=== PATIENT | female | born 1995 | race African-American/Black ===

== ENCOUNTER 2017-01-08 18:37 | Emergency (ER) | payer MEDICAID, OTHER ==
[~2017-01-08] VITALS: Ht 185.4 cm; Wt 83.9 kg
[~2017-01-08 18:37] MED LIST: COLACE100 MG ORAL; NKM
[2017-01-08] MEDS ORDERED: Dexamethasone 4mg/ml vial IM ONE (19:00)
[2017-01-08] MEDS ORDERED: DiphenhydrAMINE 50mg/ml Inj IM ONE (20:15)
[2017-01-08 21:14] LABS: BASOPHILS % (AUTO) 1.9 % (0.0-2.0); EOSINOPHILS % (AUTO) 0.1 % (0.0-3.0); LYMPHOCYTES % (AUTO) 42.9 % (20.0-45.0); MEAN CORPUSCULAR HEMOGLOBIN 28.2 PG (27.0-31.0); MEAN CORPUSCULAR HGB CONC 31.8 G/DL (32.0-36.0); MEAN CORPUSCULAR VOLUME 89 FL (80-99); MEAN PLATELET VOLUME 5.8 FL (6.5-10.1); MONOCYTES % (AUTO) 7.9 % (1.0-10.0); NEUTROPHILS % (AUTO) 47.2 % (45.0-75.0); PLATELET COUNT 295 K/UL (150-450); RED BLOOD COUNT 4.74 M/UL (4.20-5.40); RED CELL DISTRIBUTION WIDTH 12.6 % (11.6-14.8); WHITE BLOOD COUNT 6.8 K/UL (4.8-10.8)
[2017-01-08 21:30] LABS: ALANINE AMINOTRANSFERASE 9 U/L (3-33); ALBUMIN/GLOBULIN RATIO 1.8 (1.0-2.7); ANION GAP 14 (5-15); ASPARTATE AMINO TRANSFERASE 14 U/L (5-40); CALCIUM 9.7 mg/dL (8.6-10.2); CARBON DIOXIDE 26 mEQ/L (20-30); CHLORIDE 102 mEQ/L (98-107); CREATININE 0.9 mg/dL (0.5-0.9); GLOMERULAR FILTRATION RATE > 60 mL/min (>60); HEMOLYSIS 8; POTASSIUM 3.8 mEQ/L (3.4-4.9); SODIUM 142 mEQ/L (135-145)
[2017-01-08] MEDS ORDERED: EPIPEN 2-P0.3 MG/0.3 IM (21:36)
[2017-01-08] MEDS ORDERED: PEPCID40 MG PO (21:36)
[2017-01-08] MEDS ORDERED: PREDNISONE50 MG ORAL (21:36)
[2017-01-08] MEDS ORDERED: LORATADINE10 M2 PO (21:36)
--- NOTE | 2017-01-08 21:39 | Emergency Room Report ---
History of Present Illness General Chief Complaint: Pain Source: Patient (BRANDON CUNNINGHAM) Present Illness HPI 21 y/o female c/o rash x 3 days. Assoc sxs include hives all over body that are itchy and mild lip swelling that began today. States that she had eaten a burrito from [employer] that she hand eaten for a while just prior to onset of sxs. States she has been taking 25mg of benadryl with some relief of sxs but that sxs continue to return after a few hours. Denies any known allergies but believes that this may be due to macrobid which she had taken 8 days prior to onset of sxs that did not settle well with her stomach and she had stopped the medication. Denies any current n/v/f/c/d, abd pain, back pain, neck pain, photophobia, phonophobia, throat swelling, dysphagia, wheezing, CP, SOB or headache. (BRANDON CUNNINGHMA) Allergies: Coded Allergies: NITROFURANTOIN (Verified Allergy, Unknown, 01/08/17) Patient History Past Medical History: see triage record Pertinent Family History: none Last Menstrual Period: 01/08/17 Now: No Immunizations: UTD Reviewed Nursing Documentation: PMH: Agreed, PSxH: Agreed (BRANDON CUNNINGHAM) Nursing Documentation-PMH Past Medical History: No Stated History Hx Asthma: Yes - emphasema,back sergury (BRANDON CUNNINGHAM) Review of Systems All Other Systems: negative except mentioned in HPI (BRANDON CUNNINGHAM) Physical Exam Vital Signs Date Time Temp Pulse Resp B/P Pulse Ox O2 Delivery O2 Flow Rate FiO2 01/08/17 19:14 98.2 106 16 130/83 100 Room Air Sp02 EP Interpretation: reviewed, normal General Appearance: no apparent distress, alert, GCS 15, non-toxic Head: normocephalic, atraumatic Eyes: bilateral eye PERRL, bilateral eye normal inspection ENT: hearing grossly normal, normal pharynx, no angioedema, normal voice Neck: full range of motion, supple/symm/no masses Respiratory: chest non-tender, lungs clear, normal breath sounds, speaking full sentences Cardiovascular #1: regular rate, rhythm, no edema Gastrointestinal: non tender, soft Musculoskeletal: back normal, digits/nails normal, gait/station normal, normal range of motion, non-tender Neurologic: alert, oriented x3, responsive, motor strength/tone normal, sensory intact, speech normal Psychiatric: judgement/insight normal, memory normal, mood/affect normal, no suicidal/homicidal ideation Skin: normal color, warm/dry, well hydrated, rash - scattered wheels and flares on trunk, and bilateral UE and LE Lymphatic: no adenopathy (BRANDON CUNNINGHAM) Medical Decision Making PA Attestation Dr. Bush my supervising physician with whom patient management has been discussed with. (BRANDON CUNNINGHAM) Diagnostic Impression: Primary Impression: Allergic reaction Qualified Codes: T78.40XA - Allergy, unspecified, initial encounter Additional Impression: Urticaria ER Course Pt. presents to the ED c/o rash Ddx considered but are not limited to dermatitis, insect sting, viral exanthem, herpez zoster, cellulitis, abscess Vital signs: are WNL, pt. is afebrile H&PE are most consistent with allergic reaction ORDERS & ED INTERVENTIONS: Procedure Category Date Status Time Dexamethasone 4mg/Ml PHA 01/08/17 Complete Vial (Decadron 4mg/ 19:00 Diphenhydramine PHA 01/08/17 Complete (Benadryl) 20:15 Ranitidine (Zantac) PHA 01/08/17 Complete 20:15 Iv Access / Saline CARE 01/08/17 Transmitted Lock 20:33 Saline 10ml Flush PHA 01/08/17 In Process (Saline 10ml Flush) 20:45 Cbc W/ Differential LAB 01/08/17 Complete 20:33 CMP LAB 01/08/17 20:33 . DISCHARGE: At this time pt. is stable for d/c to home. Will provide printed patient care instructions, and any necessary prescriptions. Care plan and follow up instructions have been discussed with the patient prior to discharge. Laboratory Tests Test 01/08/17 20:45 White Blood Count 6.8 K/UL (4.8-10.8) Red Blood Count 4.74 M/UL (4.20-5.40) Hemoglobin 13.4 G/DL (12.0-16.0) Hematocrit 42.0 % (37.0-47.0) Mean Corpuscular Volume 89 FL (80-99) Mean Corpuscular Hemoglobin 28.2 PG (27.0-31.0) Mean Corpuscular Hemoglobin Concent 31.8 G/DL (32.0-36.0) L Red Cell Distribution Width 12.6 % (11.6-14.8) Platelet Count 295 K/UL (150-450) Mean Platelet Volume 5.8 FL (6.5-10.1) L Neutrophils (%) (Auto) 47.2 % (45.0-75.0) Lymphocytes (%) (Auto) 42.9 % (20.0-45.0) Monocytes (%) (Auto) 7.9 % (1.0-10.0) Eosinophils (%) (Auto) 0.1 % (0.0-3.0) Basophils (%) (Auto) 1.9 % (0.0-2.0) Sodium Level Pending Potassium Level Pending Chloride Level Pending Carbon Dioxide Level Pending Blood Urea Nitrogen Pending Creatinine Pending Estimate Glomerular Filtration Rate Pending Glucose Level Pending Calcium Level Pending Total Bilirubin Pending Aspartate Amino Transferase (AST) Pending Alanine Aminotransferase (ALT) Pending Alkaline Phosphatase Pending Total Protein Pending Albumin Pending Globulin Pending (BRANDON CUNNINGHAM P.A.) ER Course I saw this patient independent of PA. I agreed with the workup. Patient was feeling better. We'll discharge home with prescription for Benadryl, prednisone , and EpiPen. (CHRIS BUSH M.D.) Chest X-Ray Diagnostic Results Chest X-Ray Ordered: No (BRANDON CUNNINGHAM P.A.) Last Vital Signs Date Time Temp Pulse Resp B/P Pulse Ox O2 Delivery O2 Flow Rate FiO2 01/08/17 19:14 22 01/08/17 19:14 98.2 106 130/83 100 Room Air Status: improved (BRANDON CUNNINGHAM P.A.) Disposition: HOME, SELF-CARE Condition: Improved Scripts Epinephrine (Epipen 2-Francois) 0.3 Mg/0.3 Ml Auto.injct 0.3 MG IM ONCE for 1 Day, #1 EA Prov: BRANDON CUNNINGHAM P.A. 01/08/17 Loratadine (LORATADINE) 10 Mg Tablet 10 MG PO DAILY for 14 Days, #14 TAB Prov: BRANDON CUNNINGHAM P.A. 01/08/17 Famotidine (PEPCID) 40 Mg Tablet 40 MG PO DAILY, #14 TAB 0 Refills Prov: BRANDON CUNNINGHAM P.A. 01/08/17 Prednisone* (PREDNISONE*) 50 Mg Tablet 50 MG ORAL DAILY, #5 TAB 0 Refills Prov: BRANDON CUNNINGHAM.A. 01/08/17 Patient Instructions: Anaphylactic Reaction Additional Instructions: Take medications as directed. Follow up with PCP within 5-7 days. Advised patient to avoid using or touching whatever might have caused their rash. Patient is to protect their skin from anything that might irritate it or cause an allergy (ie wearing gloves if they need to work with harsh soaps). Advised patient to try using soothing skin products to help with the itching and discomfort which include: unscented, thick moisturizing cream, anti-itch lotion or cream, and a special kind of bath called an oatmeal bath. Advised patient to go to the ER if they experience severe symptoms like pain, widespread swelling, and large blisters, oozing, or crusting of the skin. Patient is to return sooner if their rash does not go away within 2 weeks, or if it gets worse. The most common symptoms of anaphylaxis are hives (urticaria) and swelling of the skin (angioedema), which occur in 80 to 90 percent of reactions. Respiratory symptoms occur in about 70 percent of reactions, and are especially common in people who also have asthma or another chronic respiratory disease. Extremely low blood pressure causing lightheadedness, dizziness, blurred vision, or loss of consciousness (passing out) occurs in up to about 70 percent of reactions. If you experience any of these symptoms which include SOB and throat swelling, please use your Epi-Pen as directed and call 911. BRANDON CUNNINGHAM Jan 08, 2017 21:39 CHRIS BUSH M.D. Jan 09, 2017 04:05
[2017-01-08 21:41] VITALS: BP 120/83
== END 2017-01-08 21:41 | disposition home or self-care (01) ==
LOC: EMR 18:50
DX: L50.0 Allergic urticaria (principal); J45.909 Unspecified asthma, uncomplicated
CPT/HCPCS: 36415; 80053; 85025; 96372; 99283; J1100; J1200

== ENCOUNTER 2017-01-09 01:25 | Emergency (ER) | payer MEDICAID ==
[~2017-01-09] VITALS: Ht 167.6 cm; Wt 65.8 kg
[~2017-01-09 01:25] MED LIST changes: +EPIPEN 2-P0.3 MG/0.3 IM; +LORATADINE10 M2 PO; +PEPCID40 MG PO; +PREDNISONE50 MG ORAL
[2017-01-09] MEDS ORDERED: Solu-MEDROL 125mg Inj IVP ONE (01:45)
[2017-01-09] MEDS ORDERED: DiphenhydrAMINE 50mg/ml Inj IVP ONE (01:45)
[2017-01-09] MEDS ORDERED: EPINEPHrine 1mg/1ml Amp IM ONE (01:45)
[2017-01-09 02:13] VITALS: BP 108/65
[2017-01-09 03:00] VITALS: BP 115/55
[2017-01-09 04:00] VITALS: BP 100/57
--- NOTE | 2017-01-09 04:10 | Emergency Room Report ---
History of Present Illness General Chief Complaint: Allergic Reaction Source: Patient Present Illness HPI This is a 21-year-old female with no past history. She was here earlier today for allergic reaction. She does not know for sure what is the cause of her allergic reaction. His been ongoing for last 2 days. She did eat chicken wings at [employer] and also a burrito at [employer]. Initially she came in with hives and swelling. It got better and she was sent home. She came back because she woke up with facial swelling and lip swelling again. No tongue edema. No respiratory complaint. She has not had any new contacts with any new food or medication. Allergies: Coded Allergies: NITROFURANTOIN (Verified Allergy, Unknown, 01/08/17) Patient History Past Medical History: see triage record, old chart reviewed Past Surgical History: none Pertinent Family History: none Social History: Denies: smoking Last Menstrual Period: 01/08/17 Now: No Immunizations: other Reviewed Nursing Documentation: PMH: Agreed, PSxH: Agreed Nursing Documentation-PMH Past Medical History: No History, Except For Hx Asthma: Yes - emphasema,back sergury Review of Systems Eye: Denies: blurred vision, eye pain ENT: Denies: ear pain, nose congestion, throat swelling Respiratory: Denies: cough, shortness of breath Cardiovascular: Denies: chest pain, palpitations Gastrointestinal: Denies: abdominal pain, diarrhea, nausea, vomiting Musculoskeletal: Denies: back pain, joint pain Skin: Denies: rash Neurological: Denies: headache, numbness Endocrine: Denies: increased thirst, increased urine Hematologic/Lymphatic: Denies: easy bruising All Other Systems: negative except mentioned in HPI Physical Exam Vital Signs Date Time Temp Pulse Resp B/P Pulse Ox O2 Delivery O2 Flow Rate FiO2 01/09/17 01:30 98.4 99 16 128/82 99 Room Air vitals normal Sp02 EP Interpretation: reviewed, normal General Appearance: well appearing, no apparent distress, alert Head: normocephalic, atraumatic Eyes: bilateral eye EOMI, bilateral eye PERRL ENT: hearing grossly normal, normal pharynx, other - Mild edema to the left face and upper lip. No tongue edema. No trismus. Neck: full range of motion, supple, no meningismus, other - No stridor Respiratory: chest non-tender, lungs clear, normal breath sounds Cardiovascular #1: regular rate, rhythm, no murmur Gastrointestinal: normal bowel sounds, non tender, no mass, no organomegaly, no bruit, non-distended Musculoskeletal: back normal, gait/station normal, normal range of motion Neurologic: alert, oriented x3 Psychiatric: mood/affect normal Skin: warm/dry, rash - Scattered urticaria. Medical Decision Making Diagnostic Impression: Primary Impression: Allergic reaction Qualified Codes: T78.40XA - Allergy, unspecified, initial encounter ER Course Patient presents with allergic reaction. Unknown etiology. Because of the lip swelling and facial swelling, I gave her epinephrine. She is slowly improving. Unknown etiology of her allergic reaction. She's not on any medication like an SHAWN inhibitor that would give her angioedema. 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 She has no respiratory complaint. Pt slept through the night. no worsening of symptoms. she felt better. will dc home. Unfortunately, we dont have a clear etiology, so this may come back. Chest X-Ray Diagnostic Results Chest X-Ray Ordered: No Last Vital Signs Date Time Temp Pulse Resp B/P Pulse Ox O2 Delivery O2 Flow Rate FiO2 01/09/17 01:30 98.4 99 16 128/82 99 Room Air Status: improved Disposition: HOME, SELF-CARE Condition: Improved Referrals: NOT CHOSEN IPA/,REFERRING (PCP) Patient Instructions: Allergies Additional Instructions: Fill your prescriptions. Follow up with your doctor in a week. You may need a referral to see an roofer for testing. return if worse. CHRIS CHRISTENSEN M.D. Jan 09, 2017 04:10
[2017-01-09 05:00] VITALS: BP 112/72
[2017-01-09 06:30] VITALS: BP 115/64
== END 2017-01-09 06:30 | disposition home or self-care (01) ==
LOC: EMR 01:39
DX: T78.40XA Allergy, unspecified, initial encounter (principal); X58.XXXA Exposure to other specified factors, initial encounter; Y93.9 Activity, unspecified; Y92.9 Unspecified place or not applicable; Z88.8 Allergy status to other drugs, medicaments and biological substances
CPT/HCPCS: 96372; 96374; 96375; 99284; J0171; J1200; J2930